=== PATIENT | female | born 2000 ===

== ENCOUNTER 2020-09-21 21:50 | Emergency (ER) | payer SELFPAY ==
[2020-09-22 00:44] VITALS: BP 108/66
[2020-09-22 01:46] LABS: Bacteria,Urine 1+ /HPF (Negative); Bilirubin,Urine NEG (Negative); Blood,Urine NEG (Negative); Calcium Oxalate Crystals,Urine 3+; Color,Urine Yellow (Yellow); Mucus,Urine 3+ /HPF; Protein,Urine <15 mg/dL mg/dL (Negative)
[2020-09-22 01:47] LABS: HCG Qualitative,Urine Negative (Negative)
[2020-09-22] MEDS ORDERED: LIDOCAINE VISCOUS 2% 15 ML ORAL LIQD PO ONE (02:09)
[2020-09-22] MEDS ORDERED: ONDANSETRON 4 MG/2 ML INJ IV ONE (02:09)
[2020-09-22] MEDS ORDERED: FAMOTIDINE 20 MG/2 ML INJ IV ONE (02:09)
[2020-09-22] MEDS ORDERED: DICYCLOMINE 20 MG/2 ML INJ IM ONE (02:09)
[2020-09-22] MEDS ORDERED: ALUM-MAG HYDROXIDE-SIMETHICONE 200-200-20MG/5ML ORAL LIQD 30 ML PO ONE (02:09)
--- NOTE | 2020-09-22 02:37 | XRay Report ---
CHEST 1 VIEW 09/22/2020 2:33 AM INDICATION / CLINICAL INFORMATION: Chest pain. COMPARISON: None available. FINDINGS: SUPPORT DEVICES: None. HEART / MEDIASTINUM: No significant abnormality. LUNGS / PLEURA: No significant pulmonary or pleural abnormality. No pneumothorax. ADDITIONAL FINDINGS: No significant additional findings. IMPRESSION: 1. No acute findings. Signer Name: Lex Perdomo MD Signed: 09/22/2020 2:32 AM Workstation Name: [id number]
[2020-09-22 03:02] LABS: Basophils # (Auto) 0.1 K/mm3 (0.0-0.1); Basophils % (Auto) 0.8 % (0.0-1.8); Eosinophils # (Auto) 0.2 K/mm3 (0.0-0.4); Eosinophils % (Auto) 1.9 % (0.0-4.3); Hemoglobin 12.8 gm/dl (10.1-14.3); Lymphocytes # (Auto) 4.3 K/mm3 (1.2-5.4); Lymphocytes % (Auto) 34.4 % (13.4-35.0); Monocytes % (Auto) 8.1 % (0.0-7.3)
[2020-09-22 03:11] LABS: Hematocrit 38.7 % (30.3-42.9); Mean Corpuscular HGB Conc 33 % (30-34); Mean Corpuscular Volume 83 fl (79-97); Platelet Count 512 K/mm3 (140-440); Red Blood Count 4.65 M/mm3 (3.65-5.03); Red Cell Distribution Width 14.6 % (13.2-15.2)
[2020-09-22 03:16] LABS: Alanine Aminotransferase 9 units/L (7-56); Albumin 4.4 g/dL (3.9-5); Blood Urea Nitrogen 10 mg/dL (7-17); Calcium 9.7 mg/dL (8.4-10.2); Hemolysis Index 2
[2020-09-22 03:19] LABS: BUN/Creatinine Ratio 17
--- NOTE | 2020-09-22 06:20 | Emergency Department Report ---
ED Abdominal Pain HPI - General Chief Complaint: Abdominal Pain Stated Complaint: CHEST PAIN Source: patient Mode of arrival: Ambulatory Limitations: No Limitations - History of Present Illness Initial Comments: Patient is a A0 20-year-old female with no past medical history presents to the ED with complaint of acute onset persistent diffuse abdominal pain, nausea and left-sided chest pain for the last 2 hours. Patient states that the pain has been persistent, sharp and cramping with a burning sensation. Patient denies vomiting, diarrhea, dizziness, syncope, dysuria, urinary frequency and urgency, vaginal bleeding, vaginal discharge, cough, shortness of breath, fever, chills, headache or palpitations. MD Complaint: abdominal pain, other (left-sided chest wall pain) -: Sudden, hour(s) (2) Location: diffuse Radiation: none Migration to: no migration Severity: moderate Severity scale (0 -10): 6 Quality: cramping, aching, sharp Consistency: intermittent Improves With: nothing Worsens With: eating, vomiting Associated Symptoms: denies other symptoms, nausea. denies: vomiting, diarrhea, fever, chills, constipation, dysuria, hematemesis, melena, hematuria, anorexia, syncope - Related Data LMP Date: 08/24/20 Allergies Allergy/AdvReac Type Severity Reaction Status Date / Time No Known Allergies Allergy Unverified 09/22/20 00:31 ED Review of Systems ROS: Stated complaint: CHEST PAIN Other details as noted in HPI Constitutional: denies: chills, fever Eyes: denies: eye pain, eye discharge, vision change ENT: denies: ear pain, throat pain Respiratory: denies: cough, shortness of breath, wheezing Cardiovascular: chest pain (Left-sided chest wall pain). denies: palpitations Endocrine: no symptoms reported Gastrointestinal: abdominal pain, nausea. denies: diarrhea Genitourinary: denies: urgency, dysuria, discharge Musculoskeletal: denies: back pain, joint swelling, arthralgia Skin: denies: rash, lesions Neurological: denies: headache, weakness, paresthesias Psychiatric: denies: anxiety, depression Hematological/Lymphatic: denies: easy bleeding, easy bruising ED Past Medical Hx - Past Medical History Previous Medical History?: No - Surgical History Past Surgical History?: No - Social History Smoking Status: Never Smoker Substance Use Type: None ED Physical Exam - General Limitations: No Limitations General appearance: alert, in no apparent distress - Head Head exam: Present: atraumatic, normocephalic, normal inspection - Eye Eye exam: Present: normal appearance, PERRL, EOMI Pupils: Present: normal accommodation - ENT ENT exam: Present: normal exam, normal orophraynx, mucous membranes moist, TM's normal bilaterally, normal external ear exam - Neck Neck exam: Present: normal inspection, full ROM - Respiratory Respiratory exam: Present: normal lung sounds bilaterally, chest wall tenderness (Palpable left lateral chest wall and left axilla tenderness). Absent: respiratory distress, wheezes, rales, rhonchi - Cardiovascular Cardiovascular Exam: Present: regular rate, normal rhythm, normal heart sounds. Absent: systolic murmur, diastolic murmur, rubs, gallop - GI/Abdominal GI/Abdominal exam: Present: soft, tenderness (Palpable diffuse abdominal tenderness), normal bowel sounds. Absent: guarding, rebound, hyperactive bowel sounds, hypoactive bowel sounds, organomegaly - Bi-manual exam: Present: other (Pelvic exam deferred) - Extremities Exam Extremities exam: Present: normal inspection, full ROM, normal capillary refill - Back Exam Back exam: Present: normal inspection, full ROM. Absent: tenderness, CVA tenderness (R), CVA tenderness (L), muscle spasm - Neurological Exam Neurological exam: Present: alert, oriented X3, CN II-XII intact, normal gait, reflexes normal - Psychiatric Psychiatric exam: Present: normal affect, normal mood - Skin Skin exam: Present: warm, dry, intact, normal color. Absent: rash ED Course Vital Signs 09/22/20 00:10 Temperature 98 F Pulse Rate 88 Respiratory 18 Rate Blood Pressure 108/66 [Left] O2 Sat by Pulse 100 Oximetry ED Medical Decision Making - Lab Data Result diagrams: 09/22/20 02:14 09/22/20 02:14 - Radiology Data Radiology results: report reviewed, image reviewed Findings [facility] [address] [place] [address] XRay Report Signed Patient: NEELAM PAYTON MR#: [id number] : 2000 Acct:[id number] Age/Sex: 20 / F ADM Date: 09/21/20 Loc: ED Attending Dr: Ordering Physician: NAPOLEON HAWLEY Date of Service: 09/22/20 Procedure(s): XR chest 1V ap Accession Number(s): [id number] cc: NAPOLEON HAWLEY Fluoro Time In Minutes: CHEST 1 VIEW 09/22/2020 2:33 AM INDICATION / CLINICAL INFORMATION: Chest pain. COMPARISON: None available. FINDINGS: SUPPORT DEVICES: None. HEART / MEDIASTINUM: No significant abnormality. LUNGS / PLEURA: No significant pulmonary or pleural abnormality. No pneumothorax. ADDITIONAL FINDINGS: No significant additional findings. IMPRESSION: 1. No acute findings. Signer Name: Lex Perdomo MD Signed: 09/22/2020 2:32 AM Workstation Name: [id number] Transcribed By: MIHAELA Dictated By: Lex Perdomo MD Electronically Authenticated By: Lex Perdomo MD Signed Date/Time: 09/22/20231 DD/ 1 TD/TT: - Medical Decision Making This is a A0 20-year-old female with no past medical history presents to the ED with complaint of acute onset persistent diffuse abdominal pain, nausea and left-sided chest pain for the last 2 hours. Patient states that the pain has been persistent, sharp and cramping with a burning sensation. In the ED, patient is alert and oriented x3 and is not in any distress. Patient was treated for pain in the ED and also given antacids and antiemetics. Chest x-ray shows no acute cardiopulmonary abnormalities or pneumonitis. Lab test results were reviewed and showed acute leukocytosis of 12,500, mild thrombocytosis of 512, mild acute hypokalemia of 3.4 mmol/L and urinary tract infection in urinalysis. Abdomen pelvis CT scan without contrast was ordered but the patient eloped from the ED prior to the test being performed. - Differential Diagnosis GERD; Gastritis; UTI; Gallstones; Pneumonia; Appendicitis Critical care attestation.: If time is entered above; I have spent that time in minutes in the direct care of this critically ill patient, excluding procedure time. ED Disposition Clinical Impression: Acute urinary tract infection, Left-sided chest wall pain Abdominal pain Qualifiers: Abdominal location: generalized Qualified Code(s): R10.84 - Generalized abdominal pain GERD (gastroesophageal reflux disease) Qualifiers: Esophagitis presence: without esophagitis Qualified Code(s): K21.9 - Gastro- esophageal reflux disease without esophagitis Disposition: Z-07 ELOPED Is pt being admited?: No Does the pt Need Aspirin: No Condition: Undetermined Instructions: Abdominal Pain (ED), Chest Pain (ED), Nonspecific Chest Pain, Adult, [id number], Abdominal Pain, Adult, [id number], Urinary Tract Infection, Adult, [id number], Gastroesophageal Reflux Disease, Adult, [id number] Referrals: PRIMARY CARE, [Primary Care Provider] - 3-5 Days [facility] [Provider Group] - 7-10 days Time of Disposition: 04:35 Print Language: GUINEAN
== END 2020-09-22 02:00 | disposition left against medical advice (07) ==
LOC: ED 21:50
DX: K21.9 Gastro-esophageal reflux disease without esophagitis (principal); N39.0 Urinary tract infection, site not specified
CPT/HCPCS: 36415; 71045; 80053; 81001; 81025; 83690; 84484; 85025; 87086; 93005